=== PATIENT | male | born 1990 | race Caucasian/White ===

== ENCOUNTER 2021-04-21 21:49 | Emergency (ER) | payer OTHER ==
[~2021-04-21] VITALS: Ht 180.3 cm; Wt 76.2 kg
== END 2021-04-22 | disposition home or self-care (01) ==
LOC: ER 21:49
DX: R30.0 Dysuria (principal); N39.0 Urinary tract infection, site not specified

== ENCOUNTER 2022-12-02 19:38 | Emergency (ER) | payer OTHER ==
[~2022-12-02] VITALS: Ht 180.3 cm; Wt 74.8 kg
[2022-12-02] MEDS ORDERED: [UNRECOGNIZED DRUG - OTHER] (20:01)
[2022-12-02] MEDS ORDERED: ONDANSETRON ODT8 MG PO (23:40)
[2022-12-02] MEDS ORDERED: CIPRO500 MG PO (23:40)
[2022-12-02] MEDS ORDERED: PEPCID AC20 MG PO (23:40)
[2022-12-02] MEDS ORDERED: INTESTINEX680 M1 PO (23:43)
== END 2022-12-03 00:11 | disposition home or self-care (01) ==
LOC: ER 19:38
DX: K52.9 Noninfective gastroenteritis and colitis, unspecified (principal)

== ENCOUNTER 2024-07-27 04:05 | Emergency (ER) | payer OTHER ==
[~2024-07-27] VITALS: Ht 180.3 cm; Wt 79.4 kg
[~2024-07-27 04:05] MED LIST: CIPRO500 MG PO; INTESTINEX680 M1 PO; ONDANSETRON ODT8 MG PO; PEPCID AC20 MG PO; [UNRECOGNIZED DRUG - OTHER]
[2024-07-27] MEDS ORDERED: METOCLOPRAMIDE HCL 5 MG/ML VIAL IM STA (05:41)
[2024-07-27] MEDS ORDERED: RINGERS SOLUTION,LACTATED 1,000 ML IV STA (05:42)
[2024-07-27] MEDS ORDERED: FAMOtidine 10 MG/ML (4ML VIAL) IV PUSH STA (05:43)
[2024-07-27] MEDS ORDERED: DIPHENOXYLATE HCL/ATROPINE 1 UDTAB TABLET PO STA (05:43)
[2024-07-27] MEDS ORDERED: HYOSCYAMINE SULFATE 0.125 MG TAB.SUBL SL ONE (05:45)
== END 2024-07-27 08:21 | disposition home or self-care (01) ==
LOC: ER 04:07
DX: K52.89 Other specified noninfective gastroenteritis and colitis (principal)